=== PATIENT | female | born 2000 | race Caucasian/White ===

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

== ENCOUNTER 2021-02-28 15:54 | Emergency (ER) | payer OTHER ==
[2021-02-28 16:23] VITALS: BP 98/60; PULSE 78; TEMP 98.3; BMI 25.8
[2021-02-28] MEDS ORDERED: KETOROLAC TROMETHAMINE 30 MG/1 ML VIAL ONE (17:13)
== END 2021-02-28 17:40 | disposition home or self-care (01) ==
LOC: JER 15:54 → JERFT 15:54
PROC: 3E0233Z Introduction of Anti-inflammatory into Muscle, Percutaneous Approach (ICD-10-PCS; principal; 2021-02-28)
DX: S61.304A Unspecified open wound of right ring finger with damage to nail, initial encounter (principal); S61.307A Unspecified open wound of left little finger with damage to nail, initial encounter; X50.0XXA Overexertion from strenuous movement or load, initial encounter
CPT/HCPCS: 96372; 99284-25

== ENCOUNTER 2024-06-07 02:22 | Emergency (ER) | payer OTHER ==
[2024-06-07 02:28] VITALS: BP 98/64; PULSE 79; RESP 18; TEMP 98.4; BMI 29.0
[2024-06-07] MEDS ORDERED: ACETAMINOPHEN 325 MG TABLET (FP) ONE (03:13)
[2024-06-07] MEDS ORDERED: IBUPROFEN 400 MG TABLET (FP) PO ONE (03:14)
[2024-06-07] MEDS: ACETAMINOPHEN 500 MG TABLET (FP) PO ONE (03:18)
[2024-06-07] MEDS: IBUPROFEN 400 MG TABLET (FP) PO ONE (03:18)
== END 2024-06-07 04:58 | disposition home or self-care (01) ==
LOC: JER 02:22
DX: S82.52XA Displaced fracture of medial malleolus of left tibia, initial encounter for closed fracture (principal); X50.1XXA Overexertion from prolonged static or awkward postures, initial encounter
CPT/HCPCS: 73610-TC-LT-FY; 73630-TC-LT; 99283-25

== ENCOUNTER 2024-06-19 07:48 | Day surgery (SDC) | payer OTHER ==
[2024-06-14 12:35] VITALS: BMI 28.5
[2024-06-19] MEDS ORDERED: ONDANSETRON 4 MG/2 ML VIAL IVPUSH PRN (08:19)
[2024-06-19] MEDS ORDERED: oxyCODONE HCL 5 MG TABLET PO PRN ×2 (08:19)
[2024-06-19] MEDS ORDERED: FENTANYL CITRATE/PF 50 MCG/ML VIAL ONE (08:22)
[2024-06-19] MEDS ORDERED: BUPIVACAINE HCL/PF 0.5% (5 MG/ML) 30 ML VIAL IJ ONE (08:22)
[2024-06-19] MEDS ORDERED: MIDAZOLAM HCL 2 MG/2 ML SINGLE DOSE VIAL ONE (08:23)
[2024-06-19] MEDS ORDERED: BUPIVACAINE LIPOSOME/PF (EXPAREL) 266 MG/20 ML VIAL ONE (08:23)
[2024-06-19] MEDS ORDERED: PROPOFOL 40 ML ONE (09:16)
[2024-06-19] MEDS ORDERED: PROPOFOL 20 ML ONE (09:23)
[2024-06-19 14:17] VITALS: RESP 19
[2024-06-19 14:20] VITALS: BP 109/58; PULSE 66
[2024-06-19 14:59] VITALS: TEMP 97.5
== END 2024-06-19 14:00 | disposition home or self-care (01) ==
LOC: FASU 07:48
PROVIDERS: ATTEND Orthopaedic Surgery Sports Medicine
PROC: 0QSH04Z Reposition Left Tibia with Internal Fixation Device, Open Approach (ICD-10-PCS; 2024-06-19)
PROC: 0QSK04Z Reposition Left Fibula with Internal Fixation Device, Open Approach (ICD-10-PCS; principal; 2024-06-19 09:57)
DX: S82.842A Displaced bimalleolar fracture of left lower leg, initial encounter for closed fracture (principal); X58.XXXA Exposure to other specified factors, initial encounter; Y93.9 Activity, unspecified; Y92.9 Unspecified place or not applicable
CPT/HCPCS: 27814; C1713; 73610-TC-LT-FY; 81025; 94760; J0666